=== PATIENT | male | born 1985 | race Caucasian/White ===

== ENCOUNTER 2020-11-29 17:30 | Emergency (ER) | payer SELFPAY ==
[2020-11-29 19:45] LABS: SARS-COV-2 RT PCR POSITIVE (NEGATIVE)
--- NOTE | 2020-11-29 20:17 | ER ---
Nurse's Notes [facility] Name: Augustus Zavala Age: 35 yrs Sex: Male : 1985 Arrival Date: 11/29/2020 Time: 17:38 Bed 28 Private MD: Diagnosis: Coronavirus infection, unspecified Presentation: 11/29 18:02 Chief complaint: Patient states: "I was feeling sick on Sunday, but still felt well jd3 enough to go to [employer] and do the mother's day thing, but today I feel like I have been hit by a freight train. chills, body aches, cough.". Coronavirus screen: chills, cough unrelated to allergies, fatigue, muscle pain, Client presents with at least one sign or symptom that may indicate coronavirus-19. Standard/surgical mask placed on the client. Provider contacted for isolation considerations. Ebola Screen: Patient negative for fever greater than or equal to 101.5 degrees Fahrenheit, and additional compatible Ebola Virus Disease symptoms. Initial Sepsis Screen: Does the patient meet any 2 criteria? No. Patient's initial sepsis screen is negative. Does the patient have a suspected source of infection? No. Patient's initial sepsis screen is negative. Risk Assessment: Do you want to hurt yourself or someone else? Patient reports no desire to harm self or others. Onset of symptoms was November 28, 2020. 18:02 Method Of Arrival: Ambulatory jd3 18:02 Acuity: MARLYS 3 jd3 Historical: - Allergies: 18:06 Morphine; jd3 18:06 Lortab Elixir; jd3 - Home Meds: 18:06 Glipizide Oral [Active]; Protonix Oral [Active]; jd3 - PMHx: 18:06 Diabetes - NIDDM; GERD; jd3 - PSHx: 18:06 Appendectomy; Cholecystectomy; left ear; jd3 - Immunization history:: Adult Immunizations up to date. - Social history:: Smoking status: Patient denies any tobacco usage or history of. Screenin:45 Abuse screen: Denies threats or abuse. Denies injuries from another. Nutritional zb screening: No deficits noted. Tuberculosis screening: No symptoms or risk factors identified. Fall Risk None identified. Assessment: 19:45 Reassessment: notified ECP that patient is positive for COVID. zb 20:05 Reassessment: ECP at bedside. zb 20:10 General: Appears uncomfortable, Behavior is calm, cooperative, appropriate for age, zb Reports feeling ill for 1-2 days, fatigue for 1-2 days. Pain: Complains of pain in throat, generalized body aches, and headache Pain currently is 6 out of 10 on a pain scale. Quality of pain is described as aching. Neuro: Level of Consciousness is awake, alert, obeys commands, Oriented to person, place, time, situation. Cardiovascular: Patient's skin is warm and dry. Respiratory: Airway is patent Respiratory effort is even, unlabored, Respiratory pattern is regular, Breath sounds are clear bilaterally. GI: No signs and/or symptoms were reported involving the gastrointestinal system. : No signs and/or symptoms were reported regarding the genitourinary system. EENT: Throat is clear. Derm: Skin is healthy with good turgor, Skin is dry, Skin is normal. Musculoskeletal: Circulation, motion, and sensation intact. Range of motion: intact in all extremities. 20:25 Reassessment: d/c instructions given. patient ambulatory. gait even and steady upon d/c.zb Vital Signs: 18:06 BP 144 / 83; Pulse 101; Resp 19 S; Temp 97.7(TE); Pulse Ox 99% on R/A; Weight 270.34 kg jd3 (R); Height 6 ft. 7 in. (200.66 cm) (R); Pain 5/10; 20:25 BP 152 / 107; Pulse 93; Resp 16; Pulse Ox 99% on R/A; zb 18:06 Body Mass Index 67.14 (270.34 kg, 200.66 cm) jd3 ED Course: 17:38 Patient arrived in ED. am2 18:04 Triage completed. jd3 18:07 Arm band placed on. jd3 19:01 COVID-19 : Document "Date of Symptom Onset" if Symptomatic. Sent. ca1 19:44 Jc Veronica PA is PHCP. jmm 19:44 Gadiel Live MD is Attending Physician. jmm 19:46 Patient has correct armband on for positive identification. Bed in low position. Call zb light in reach. Side rails up X 1. Notified ED physician of a critical lab result(s). Positive COVID. Door closed. Noise minimized. Warm blanket given. 19:49 Aylin Wetzel, RN is Primary Nurse. zb 20:23 No provider procedures requiring assistance completed. Patient did not have IV access zb during this emergency room visit. Administered Medications: 20:20 Drug: Decadron (dexamethasone) 10 mg Route: IM; Site: left deltoid; zb 20:20 Follow up: Response: Medication administered at discharge. zb Outcome: 20:16 Discharge ordered by MD. tellez 20:23 Discharged to home ambulatory. zb 20:23 Condition: stable 20:23 Discharge instructions given to patient, Instructed on discharge instructions, follow up and referral plans. medication usage, Demonstrated understanding of instructions, follow-up care, medications, Prescriptions given X 3. 20:28 Patient left the ED. zb Signatures: Jc Veronica PA PA jmm Moreno, Amanda am2 Kenny Cantrell RN RN jFabi Scott RN RN ca1 Aylin Wetzel RN RN zb
--- NOTE | 2020-11-29 20:17 | EDPHYS ---
Physician Documentation [facility] Name: Augustus Zavala Age: 35 yrs Sex: Male : 1985 Arrival Date: 11/29/2020 Time: 17:38 Bed 28 Private MD: ED Physician Gadiel Live HPI: 11/29 18:08 This 35 yrs old Male presents to ER via Ambulatory with complaints of Sore jmm Throat, General Weakness, Cough, chills, sweats. 18:08 The patient presents with sore throat. Onset: The symptoms/episode began/occurred jmm gradually, 1 day(s) ago. Modifying factors: The symptoms are alleviated by nothing, the symptoms are aggravated by nothing. Associated signs and symptoms: Pertinent positives: chills, cough, fever. This is a 35 year old male with a history of DM, that presents to the ED with complaints of sore throat cough, congestion. . Historical: - Allergies: 18:06 Morphine; jd3 18:06 Lortab Elixir; jd3 - Home Meds: 18:06 Glipizide Oral [Active]; Protonix Oral [Active]; jd3 - PMHx: 18:06 Diabetes - NIDDM; GERD; jd3 - PSHx: 18:06 Appendectomy; Cholecystectomy; left ear; jd3 - Immunization history:: Adult Immunizations up to date. - Social history:: Smoking status: Patient denies any tobacco usage or history of. ROS: 18:08 Constitutional: Positive for body aches, chills. jmm 18:08 Respiratory: Positive for cough. 18:08 Neuro: Positive for weakness. 18:08 All other systems are negative. Exam: 18:08 Constitutional: This is a well developed, well nourished patient who is awake, alert, jmm and in no acute distress. Head/Face: atraumatic. Eyes: EOMI, no conjunctival erythema appreciated ENT: Moist Mucus Membranes Neck: Trachea midline, Supple Chest/axilla: Normal chest wall appearance and motion. Cardiovascular: Regular rate and rhythm. No edema appreciated Respiratory: Normal respirations, no respiratory distress appreciated Abdomen/GI: Non distended, soft Back: Normal ROM Skin: General appearance color normal MS/ Extremity: Moves all extremities, no obvious deformities appreciated, no edema noted to the lower extremities Neuro: Awake and alert, normal gait Psych: Behavior is normal, Mood is normal, Patient is cooperative and pleasant Vital Signs: 18:06 BP 144 / 83; Pulse 101; Resp 19 S; Temp 97.7(TE); Pulse Ox 99% on R/A; Weight 270.34 kg jd3 (R); Height 6 ft. 7 in. (200.66 cm) (R); Pain 5/10; 20:25 BP 152 / 107; Pulse 93; Resp 16; Pulse Ox 99% on R/A; zb 18:06 Body Mass Index 67.14 (270.34 kg, 200.66 cm) jd3 MDM: 19:53 Patient medically screened. jesse 20:13 Data reviewed: vital signs, nurses notes. Counseling: I had a detailed discussion with geoff the patient and/or guardian regarding: the historical points, exam findings, and any diagnostic results supporting the discharge/admit diagnosis, lab results, the need for outpatient follow up, to return to the emergency department if symptoms worsen or persist or if there are any questions or concerns that arise at home. ED course: Patient is alert and non toxic in appearance in the ED. No resp distress. Patient is given strict return precautions. patient understood and agrees with . 11/29 18:08 Order name: COVID-19 : Document "Date of Symptom Onset" if Symptomatic. [facility] 11/29 18:08 Order name: Strep j 11/29 18:08 Order name: Group A Streptococcus Rapid Sc; Complete Time: 19:46 EDMS 11/29 19:24 Order name: Throat Culture EDNY 11/29 19:46 Order name: COVID-19/FLU A+B; Complete Time: 19:51 EDMS Administered Medications: 20:20 Drug: Decadron (dexamethasone) 10 mg Route: IM; Site: left deltoid; zb 20:20 Follow up: Response: Medication administered at discharge. zb Disposition: 11/30 06:48 Co-signature as Attending Physician, Gadiel Live MD I agree with the assessment and the [facility] plan of care. Disposition: 11/29/20 20:16 Discharged to Home. Impression: Coronavirus infection, unspecified. - Condition is Stable. - Discharge Instructions: COVID-19. - Prescriptions for ivermectin 3 mg Oral tablet - take 6 tablet by ORAL route as directed one dose now and one dose on day 3; 12 tablet. Zithromax Z- Renato 250 mg Oral Tablet - take 1 tablet by ORAL route as directed for 5 days Day 1 - take two (2) tablets one time. Day 2, 3, 4 , 5 take one (1) tablet once daily.; 6 tablet. Albuterol Sulfate 90 mcg/actuation - inhale 1-2 puff by INHALATION route every 4-6 hours; 1 Inhaler. - Medication Reconciliation Form, Thank You Letter, Antibiotic Education, Prescription Opioid Use form. - Follow up: Private Physician; When: 2 - 3 days; Reason: Recheck today's complaints, Continuance of care, Re-evaluation by your physician. - Notes: Please take: 1000 MG of NAC (N-Acetyl Cysteine) 3 times a day 2 mg of melatonin before bedtime 50 mg of Zinc daily 10,000 IU of Vitamin D daily Signatures: Dispatcher [employer] EDMS Gadiel Live MD MD cha Mickail, Joel, PA PA jmm Davies, Jonathon, RN RN Aylin Guido RN RN zb Corrections: (The following items were deleted from the chart) 11/29 18:54 18:08 CORONAVIRUS ordered. [facility] EDNY 18:54 18:09 Influenza Screen (A \\T\\ B)+BA.LAB.BRZ ordered. [facility] EDMS 20:28 20:16 11/29/2020 20:16 Discharged to Home. Impression: Coronavirus infection, zb unspecified. Condition is Stable. Forms are Medication Reconciliation Form, Thank You Letter, Antibiotic Education, Prescription Opioid Use. Follow up: Private Physician; When: 2 - 3 days; Reason: Recheck today's complaints, Continuance of care, Re-evaluation by your physician. geoff
[2020-11-29] MEDS ORDERED: dexAMETHasone 10 MG/ML VIAL ONE (20:33)
[2020-11-29 21:06] VITALS: TEMP 97.7; O2SAT 99
[2020-11-29 21:08] VITALS: BP 152/107
== END 2020-11-29 20:28 | disposition home or self-care (01) ==
LOC: ER 17:30
DX: U07.1 COVID-19 (principal); E11.9 Type 2 diabetes mellitus without complications; Z88.5 Allergy status to narcotic agent
CPT/HCPCS: 0240U; 87070; 87081; 96372; 99283; J1100

== ENCOUNTER 2021-04-13 13:11 | Emergency (ER) | payer SELFPAY ==
[2021-04-13 14:42] LABS: Absolute Lymphocytes (CBC) 3.1 K/uL (0.7-4.9); Basophils % 0.8 % (0-1.3); Hematocrit 39.7 % (39.6-49.0); Lymphocytes % 29.9 % (15.3-44.8); MPV 8.3 fL (7.6-11.3); RBC Red Blood Cell Count 4.84 M/uL (4.33-5.43)
[2021-04-13 14:55] LABS: ALT/SGPT 39 U/L (12-78); AST/SGOT 16 U/L (15-37); Albumin 3.9 g/dL (3.4-5.0); Alkaline Phosphatase 108 U/L (45-117); BUN Blood Urea Nitrogen 21 mg/dL (7-18); Bicarbonate 25 mmol/L (21-32); Bilirubin Direct 0.1 mg/dL (0-0.2); Bilirubin Total 0.5 mg/dL (0.2-1.0); Glucose Level 347 mg/dL (74-106); Lipase 170 U/L (73-393); Potassium 3.8 mmol/L (3.5-5.1); Protein, Total 7.9 g/dL (6.4-8.2); Sodium Level 135 mmol/L (136-145)
[2021-04-13] MEDS ORDERED: NA CHLORIDE 0.9% 1,000 ML ONE (16:39)
--- NOTE | 2021-04-13 17:03 | ER ---
Nurse's Notes [facility] Name: Augustus Zavala Age: 35 yrs Sex: Male : 1985 Arrival Date: 04/13/2021 Time: 13:18 Bed 12 Private MD: Diagnosis: SARS-associated coronavirus as the cause of diseases classified elsewhere Presentation: 04/13 13:29 Chief complaint: Patient states: tired, increased thurst, diarrhea since yesterday. HX; tc5 DM, covid recovered 2 months ago. Coronavirus screen: Vaccine status: Patient reports being unvaccinated. recovered 2 months ago. Ebola Screen: Patient negative for fever greater than or equal to 101.5 degrees Fahrenheit, and additional compatible Ebola Virus Disease symptoms Patient denies exposure to infectious person. Patient denies travel to an Ebola-affected area in the 21 days before illness onset. No symptoms or risks identified at this time. Onset of symptoms was April 12, 2021 at 00:00. 13:29 Method Of Arrival: Ambulatory tc5 13:29 Acuity: MARLYS 3 tc5 13:42 Initial Sepsis Screen: Does the patient meet any 2 criteria? No. Patient's initial tw2 sepsis screen is negative. Does the patient have a suspected source of infection? No. Patient's initial sepsis screen is negative. Risk Assessment: Do you want to hurt yourself or someone else? Patient reports no desire to harm self or others. Triage Assessment: 13:29 General: Appears in no apparent distress. obese, Behavior is calm, cooperative, tw2 appropriate for age. Pain: Denies pain. Historical: - Allergies: 13:40 Lortab Elixir; tw2 13:40 Morphine; tw2 - Home Meds: 13:40 glipizide 10 mg oral tab 1 tab once daily [Active]; Protonix Oral [Active]; tw2 - PMHx: 13:40 Diabetes - NIDDM; GERD; tw2 - PSHx: 13:40 Appendectomy; Cholecystectomy; cyst removed from ear drum; tw2 - Immunization history:: Client reports having NOT received the Covid vaccine. - Social history:: Smoking status: . Screenin:42 Abuse screen: Denies threats or abuse. Nutritional screening: No deficits noted. tw2 Tuberculosis screening: No symptoms or risk factors identified. Fall Risk None identified. Assessment: 13:47 Reassessment: provider at bedside at this time. tw2 Vital Signs: 13:29 BP 153 / 81; Pulse 100; Resp 18; Temp 98.1; Pulse Ox 98% ; Weight 226.8 kg; Height 6 tc5 ft. 7 in. (200.66 cm); Pain 4/10; 13:42 Weight 207.43 kg (M); tw2 15:27 BP 130 / 62; Pulse 82; Resp 16; Pulse Ox 96% ; tc5 13:42 Body Mass Index 51.52 (207.43 kg, 200.66 cm) tw2 ED Course: 13:18 Patient arrived in ED. am2 13:33 Triage completed. tc5 13:33 Bed in low position. Call light in reach. Side rails up X 1. tw2 13:35 Dominick Power PA is PHCP. jr8 13:35 Katherine Bell MD is Attending Physician. jr8 13:41 Arm band placed on. tw2 13:59 Janiya Martinez, [place] is Primary Nurse. tc5 14:36 Basic Metabolic Panel Sent. tc5 14:37 CBC with Automated Diff Sent. tc5 14:37 Hepatic Function Sent. tc5 14:37 Lipase Sent. tc5 14:37 Basic Metabolic Panel Sent. tc5 14:37 CBC with Diff Sent. tc5 14:37 Inserted saline lock: 20 gauge in left antecubital area, using aseptic technique. tc5 15:28 Awaiting: pt resting, waiting for his lab results. no needs expressed at this time. tc5 Administered Medications: 16:18 Drug: NS 0.9% 1000 ml Route: IV; Rate: 1 bolus; Site: left antecubital; tc5 Outcome: 17:03 Discharge ordered by . jr8 17:48 Patient left the ED. tc5 Signatures: Dominick Power PA PA jr8 Cheryl Moreno RN RN tw2 Madelaine Zaldivar 2 Janiya Martinez RN RN tc5 Corrections: (The following items were deleted from the chart) 15:28 15:25 BP 154 / 96; Pulse 75bpm; Resp 16bpm; Pulse Ox 100%; tc5 tc5 15:40 14:37 CORONAVIRUS+MR.LAB.BRZ drawn and sent. tc5 EDMS
--- NOTE | 2021-04-13 17:03 | EDPHYS ---
Physician Documentation [facility] Name: Augustus Zavala Age: 35 yrs Sex: Male : 1985 Arrival Date: 04/13/2021 Time: 13:18 Bed 12 Private MD: ED Physician Katherine Bell HPI: 04/13 14:07 This 35 yrs old Male presents to ER via Ambulatory with complaints of General jr8 Weakness, Headache, Diarrhea. 14:07 Onset: The symptoms/episode began/occurred acutely, yesterday. Associated signs and jr8 symptoms: Pertinent positives: headache, Nausea, fatigue. Modifying factors: The patient symptoms are alleviated by nothing, the patient symptoms are aggravated by nothing. The patient has not experienced similar symptoms in the past. The patient has not recently seen a physician. This is a 35-year-old male patient stated that for the past 2 days has had increased fatigue, headache, nausea, diarrhea. Had Covid about 2 months ago but recovered fully. Stated he has had increased thirst as well. Has been out of his meds and has not been able to check his blood sugar.. Historical: - Allergies: 13:40 Lortab Elixir; tw2 13:40 Morphine; tw2 - Home Meds: 13:40 glipizide 10 mg oral tab 1 tab once daily [Active]; Protonix Oral [Active]; tw2 - PMHx: 13:40 Diabetes - NIDDM; GERD; tw2 - PSHx: 13:40 Appendectomy; Cholecystectomy; cyst removed from ear drum; tw2 - Immunization history:: Client reports having NOT received the Covid vaccine. - Social history:: Smoking status: . ROS: 14:07 Eyes: Negative for injury, pain, redness, and discharge, ENT: Negative for injury, jr8 pain, and discharge, Neck: Negative for injury, pain, and swelling, Cardiovascular: Negative for chest pain, palpitations, and edema, Respiratory: Negative for shortness of breath, cough, wheezing, and pleuritic chest pain, Back: Negative for injury and pain, MS/Extremity: Negative for injury and deformity, Skin: Negative for injury, rash, and discoloration. 14:07 Constitutional: Positive for fatigue, malaise. 14:07 Abdomen/GI: Positive for nausea, diarrhea, Negative for abdominal pain, vomiting. 14:07 Neuro: Positive for headache. Exam: 14:07 Constitutional: This is a well developed, well nourished patient who is awake, alert, jr8 and in no acute distress. ENT: Nares patent. No nasal discharge, no septal abnormalities noted. Tympanic membranes are normal and external auditory canals are clear. Oropharynx with no redness, swelling, or masses, exudates, or evidence of obstruction, uvula midline. Mucous membranes moist. Neck: Trachea midline, no thyromegaly or masses palpated, and no cervical lymphadenopathy. Supple, full range of motion without nuchal rigidity, or vertebral point tenderness. No Meningismus. Cardiovascular: Regular rate and rhythm with a normal S1 and S2. No gallops, murmurs, or rubs. Normal PMI, no JVD. No pulse deficits. Respiratory: Lungs have equal breath sounds bilaterally, clear to auscultation and percussion. No rales, rhonchi or wheezes noted. No increased work of breathing, no retractions or nasal flaring. Abdomen/GI: Soft, non-tender, with normal bowel sounds. No distension or tympany. No guarding or rebound. No evidence of tenderness throughout. Back: No spinal tenderness. No costovertebral tenderness. Full range of motion. Skin: Warm, dry with normal turgor. Normal color with no rashes, no lesions, and no evidence of cellulitis. MS/ Extremity: Pulses equal, no cyanosis. Neurovascular intact. Full, normal range of motion. Neuro: Awake and alert, GCS 15, oriented to person, place, time, and situation. Cranial nerves II-XII grossly intact. Motor strength 5/5 in all extremities. Sensory grossly intact. Vital Signs: 13:29 BP 153 / 81; Pulse 100; Resp 18; Temp 98.1; Pulse Ox 98% ; Weight 226.8 kg; Height 6 tc5 ft. 7 in. (200.66 cm); Pain 4/10; 13:42 Weight 207.43 kg (M); tw2 15:27 BP 130 / 62; Pulse 82; Resp 16; Pulse Ox 96% ; tc5 13:42 Body Mass Index 51.52 (207.43 kg, 200.66 cm) tw2 MDM: 13:38 Patient medically screened. [facility] 17:01 Data reviewed: vital signs, nurses notes, lab test result(s), and as a result, I will jr8 discharge patient. Data interpreted: Pulse oximetry: on room air is 96 %. Interpretation: normal. Counseling: I had a detailed discussion with the patient and/or guardian regarding: the historical points, exam findings, and any diagnostic results supporting the discharge/admit diagnosis, lab results, the need for outpatient follow up, a family practitioner, to return to the emergency department if symptoms worsen or persist or if there are any questions or concerns that arise at home. ED course: Patient feeling better overall. Discussed with him that his glucose was high but that he is also Covid positive. I checked with patient to see between the last time he had Covid if he had any negative PCR's between now and then. Patient stated that since his last Covid he has had 2 - PCR's. Because of this I am suspicious that patient may have Covid based on his symptoms again and then positive PCR today. We will treat as such and have him quarantine for the next 10 days. Knows to come back if worse.. 04/13 13:53 Order name: Basic Metabolic Panel [facility] 04/13 13:53 Order name: CBC with Diff 8 04/13 13:53 Order name: Hepatic Function; Complete Time: 14:56 [facility] 04/13 13:53 Order name: Lipase; Complete Time: 14:56 8 04/13 13:53 Order name: Basic Metabolic Panel; Complete Time: 14:56 EDMS 04/13 13:53 Order name: IV Saline Lock; Complete Time: 14:37 [facility] 04/13 13:53 Order name: Labs collected and sent; Complete Time: 14:37 [facility] 04/13 13:53 Order name: CBC with Automated Diff; Complete Time: 14:56 EDMS 04/13 16:57 Order name: SARS-COV-2 RT PCR; Complete Time: 17:06 EDMS Administered Medications: 16:18 Drug: NS 0.9% 1000 ml Route: IV; Rate: 1 bolus; Site: left antecubital; tc5 Disposition Summary: 04/13/21 17:03 Discharge Ordered Location: Home jr Problem: new jr8 Symptoms: have improved jr8 Condition: Stable jr8 Diagnosis - SARS-associated coronavirus as the cause of diseases classified elsewhere jr8 Followup: jr8 - With: Private Physician - When: 1 week - Reason: Recheck today's complaints, Continuance of care, Re-evaluation by your physician Discharge Instructions: - COVID-19 jr8 - Discharge Summary Sheet tw2 Forms: - Medication Reconciliation Form jr8 - Thank You Letter jr8 - Antibiotic Education jr8 - Work release form tw2 - Prescription Opioid Use jr8 Prescriptions: - Zofran 4 mg Oral Tablet - take 1 tablet by ORAL route every 12 hours As needed; 20 tablet; Refills: 0, jr8 Product Selection Permitted Addendum: 04/16/2021 17:41 Co-signature as Attending Physician, Katherine Bell MD. m a2 Signatures: Dispatcher [employer] EDMS Dominick Power PA PA jr8 Cheryl Moreno RN RN tw2 Katherine Bell MD MD de2 Janiya Martinez RN RN tc5 Corrections: (The following items were deleted from the chart) 04/13 15:40 13:54 CORONAVIRUS+MR.LAB.BRZ ordered. [facility]WA EDMS
[2021-04-13 18:22] VITALS: TEMP 98.1
[2021-04-13 18:23] VITALS: BP 130/62; O2SAT 96
== END 2021-04-13 17:48 | disposition home or self-care (01) ==
LOC: ER 13:11
DX: U07.1 COVID-19 (principal); E11.9 Type 2 diabetes mellitus without complications; K21.9 Gastro-esophageal reflux disease without esophagitis
CPT/HCPCS: 36415; 80048; 80076; 83690; 85025; 99283; J7030; U0003

== ENCOUNTER 2022-11-24 12:49 | Emergency (ER) | payer OTHER, SELFPAY ==
--- OUTSIDE RECORDS SUMMARY | 2022-11-24 12:53 | XMS REPORT | Continuity of Care Document ---
:1985 Author Organization [facility] t Address [address] [place] [address] [place] [id number] Care Team Providers Name Role Phone PCP, PATIENT DOES NOT HAVE A Primary Care Physician UnavailBrock Head Attending Clinician BROCK RUSH Attending Clinician Unavailable Doctor Unassigned, [place] Attending Clinician Unavailable VY GONZALEZ Attending Clinician Unavailable Vy Gonzalez MD Attending Clinician Noe Zepeda Attending Clinician NOE AKBAR Attending Clinician Unavailable NOE AKBAR Admitting Clinician Unavailable Payers Payer Name Policy Type Policy Number Effective Date Expiration Date S ource Problems Condition Condition Condition Status Onset Resolution Last Treating Co mments Source Name Details Category Date Date Treatment Clinician Date No known No known Disease Unive rs active active ity of problems problems [facility] Allergies, Adverse Reactions, Alerts Allergy Allergy Status Severity Reaction(s) Onset Inactive Treating Comm ents Source Name Type Date Date Clinician Morphine Propensi Active Nausea Univer s ty to and/or 07-31 ity of adverse Vomiting 00:00: [place] reaction 00 Medical s Branch HYDROCOD DRUG Active Other-Cmnt Univ ers ONE-ACET 07-31 ity of AMINOPHE 00:00: [place] N 00 Medical Branch MORPHINE DRUG Active N/V Univers INGREDI 07-31 ity of 00:00: [place] [facility] Hydrocod Propensi Active Other - See Night U nivers one-Acet ty to comments 07-31 terrors ity o f aminophe adverse 00:00: [place] n reaction 00 Medical s Branch Social History Social Habit Start Date Stop Date Quantity Comments Source Exposure to 2021-12-24 2022-01-03 Not sure [facility] SARS-CoV-2 (event) 00:00:00 23:40:00 Medica l Branch Sex Ass[birth year] At [birth year] [facility] 00:00:00 00:00:00 Medical Branch Smoking Status Start Date Stop Date Source Unknown if ever smoked [facility] Medications Ordered Filled Start Stop Current Ordering Indication Dosage Frequency Signature Comments Components Source Medication Medication Date Date Medication? Clinician (SIG) Name Name lidocaine No 10mL 10 mL, Unive rs 2% viscous 6-15 06-15 Oral, ity of (LIDOCAINE 08:00: 06:52 ONCE, 1 Vince as VISCOUS) 2 00 :00 dose, On Medic al % solution Wed Branch 10 mL 01/04/22 at 0300, BROOK traMADoL 50 Yes [id number] 50mg Take 1 Univ ers mg tablet 6-15 tablet by ity o f 00:00: mouth [place] 00 every 6 Medical (six) Branch hours as needed for Pain (scale 7-10). Indication s: acute pain amoxicillin Yes [id number] 875mg Take 1 Univers 875 mg 6-15 tablet by ity of tablet 00:00: mouth 2 [place] 00 (two) Medical times Branch daily. ketorolac 2021- No 30mg 30 mg, Unive rs (TORADOL) 2-05 02-05 Slow IV ity of injection 04:30: 03:25 Push, [place] 30 mg 00 :00 ONCE, 1 Medical dose, On Branch 08/26/21 at 2230, Routine
faculty member approving Restricted medication : VY GONZALEZ ketorolac Yes [id number] 10mg Take 1 U nivers 10 mg 2-04 tablet by ity of tablet 00:00: mouth [place] 00 every 6 Medical (six) Branch hours as needed for Pain (scale 7-10). methocarbam Yes [id number] 750mg Take 1 Univers oL 750 mg 2-04 tablet by ity o f tablet 00:00: mouth [place] 00 every 6 Medical (six) Branch hours as needed for Pain (scale 7-10) (MUSCLE SPASM). ketorolac 0 Yes [id number] 10mg Take 1 U nivers 10 mg 2-04 tablet by ity of tablet 00:00: mouth [place] 00 every 6 Medical (six) Branch hours as needed for Pain (scale 7-10). methocarbam 0 Yes [id number] 750mg Take 1 Univers oL 750 mg 2-04 tablet by ity o f tablet 00:00: mouth [place] 00 every 6 Medical (six) Branch hours as needed for Pain (scale 7-10) (MUSCLE SPASM). ketorolac 0 Yes [id number] 10mg Take 1 U nivers 10 mg 2-04 tablet by ity of tablet 00:00: mouth [place] 00 every 6 Medical (six) Branch hours as needed for Pain (scale 7-10). methocarbam 0 Yes [id number] 750mg Take 1 Univers oL 750 mg 2-04 tablet by ity o f tablet 00:00: mouth [place] 00 every 6 Medical (six) Branch hours as needed for Pain (scale 7-10) (MUSCLE SPASM). ketorolac 2021- No 30mg 30 mg, Unive rs (TORADOL) 07-31 Slow IV ity of injection 17:30: 16:27 Push, [place] 30 mg 00 :00 ONCE, 1 Medical dose, On Branch 07/31/21 at 1130, BROOK ondansetron 2021- No 4mg 4 mg, Slow Univers (ZOFRAN 07-31 IV Push, ity of (PF)) 17:30: 16:27 ONCE, 1 [place] injection 4 00 :00 dose, On Medi jennifer mg 07/31/21 Branch at 1130, BROOK iopamidol 2021- No [id number] 120mL 120 mL, Univers (ISOVUE 07-31 Intravenou ity o f 370-500 mL) 17:15: 17:13 s, ONCE, 1 [place] injection 00 :00 dose, On Medica l 120 mL 07/31/21 Branch at 1115, Routine NaCl 0.9% 2021-0 202- No 1000mL at 999 Uni vers (NS) bolus 1-09 01-09 mL/hr, ity of infusion 17:15: 19:00 1,000 mL, Vince as 1,000 mL 00 :00 IV Medical Infusion, Branch ONCE, 1 dose, On 07/31/21 at 1115, BROOK ondansetron 2-0 Yes [id number] 4mg Take 1 U nivers (ZOFRAN) 4 1-09 tablet by ity of mg tablet 00:00: mouth [place] 00 every 8 Medical (eight) Branch hours as needed for Nausea and Vomiting (N/V). dicyclomine 2022-0 Yes [id number] 20mg Take 1 Univers 20 mg 1-09 tablet by ity of tablet 00:00: mouth 4 [place] 00 (four) Medical times Branch daily as needed for Abdominal pain. ondansetron 2022-0 Yes [id number] 4mg Take 1 U nivers (ZOFRAN) 4 1-09 tablet by ity of mg tablet 00:00: mouth [place] 00 every 8 Medical (eight) Branch hours as needed for Nausea and Vomiting (N/V). dicyclomine 2022-0 Yes [id number] 20mg Take 1 Univers 20 mg 1-09 tablet by ity of tablet 00:00: mouth 4 [place] 00 (four) Medical times Branch daily as needed for Abdominal pain. ondansetron 2-0 Yes [id number] 4mg Take 1 U nivers (ZOFRAN) 4 1-09 tablet by ity of mg tablet 00:00: mouth [place] 00 every 8 Medical (eight) Branch hours as needed for Nausea and Vomiting (N/V). dicyclomine 2022-0 Yes [id number] 20mg Take 1 Univers 20 mg 1-09 tablet by ity of tablet 00:00: mouth 4 00 (four) Medical times Branch daily as needed for Abdominal pain. ondansetron 2022-0 Yes [id number] 4mg Take 1 U nivers (ZOFRAN) 4 1-09 tablet by ity of mg tablet 00:00: mouth [place] 00 every 8 Medical (eight) Branch hours as needed for Nausea and Vomiting (N/V). dicyclomine 2022-0 Yes [id number] 20mg Take 1 Univers 20 mg 1-09 tablet by ity of tablet 00:00: mouth 4 [place] 00 (four) Medical times [place] daily as needed for Abdominal pain. glipiZIDE 2021- No [id number] 10mg Take 1 U nivers 10 mg 07-31 tablet by ity of tablet 00:00: 05:59 mouth 2 [place] 00 :00 (two) Medical times [place] daily before breakfast and dinner for 30 days. glipiZIDE 2021- No [id number] 10mg Take 1 U nivers 10 mg 07-31 tablet by ity of tablet 00:00: 05:59 mouth 2 [place] 00 :00 (two) Medical times [place] daily before breakfast and dinner for 30 days. Vital Signs Vital Name Observation Time Observation Value Comments Source Systolic blood 2022-01-04 07:12:00 158 mm[Hg] Univer sity [facility] Diastolic blood 2022-01-04 07:12:00 87 [facility]Hg[facility] 2022-01-04 07:12:00 92 /min [facility] Respiratory rate 2022-01-04 07:12:00 20 /min [facility] Oxygen saturation in 2022-01-04 07:12:00 98 /min [facility] Arterial blood by [facility] Pulse oximetry [place] Body temperature 2022-01-04 04:40:00 37.06 Anahi [facility] Body height 2022-01-04 04:40:00 200.7 cm [facility] Body weight 2022-01-04 04:40:00 208.655 kg [facility] BMI 2022-01-04 04:40:00 51.82 kg/m2 [facility] Systolic blood 2021-08-27 05:02:00 133 mm[Hg] Univer sity [facility] Diastolic blood 2021-08-27 05:02:00 66 mm[Hg] Unive rsity [facility] Heart rate 2021-08-27 05:02:00 76 /min [facility] Respiratory rate 2021-08-27 05:02:00 18 /min [facility] Oxygen saturation in 2021-08-27 05:02:00 97 /min University of Arterial blood by [facility] Pulse oximetry [place] Body temperature 2021-08-27 02:56:00 36.78 Anahi [facility] Body height 2021-08-27 02:56:00 200.7 cm [facility] Body weight 2021-08-27 02:56:00 206.387 kg [facility] BMI 2021-08-27 02:56:00 51.26 kg/m2 [facility] Body weight 2021-07-31 16:42:00 205.479 kg [facility] Systolic blood 2021-07-31 15:52:00 165 mm[Hg] Univer sity of [facility] Diastolic blood 2021-07-31 15:52:00 102 mm[facility]Hg] [facility] 2021-07-31 15:52:00 104 /min [facility] Body temperature 2021-07-31 15:52:00 37.17 Anahi [facility] Respiratory rate 2021-07-31 15:52:00 26 /min [facility] Oxygen saturation in 2021-07-31 15:52:00 99 /min [employer] of Arterial blood by [facility] Pulse oximetry [place] Procedures Procedure Date / Time Performing Clinician Source Performed CONSENT/REFUSAL FOR 2022-01-04 04:20:35 [facility] Un[facility]igned, [facility] Branch LIPASE 2021-08-27 03:21:00 Vy Gonzalez [facility] COMP. METABOLIC PANEL 2021-08-27 03:21:00 Vy Gonzalez [facility] ([id number] CBC WITH DIFF 2021-08-27 03:21:00 Vy Gonzalez [facility] URINALYSIS 2021-08-27 03:21:00 Vy Gonzalez [facility] NOTICE OF PRIVACY 2021-08-27 02:43:36 Doctor Unassigned, No Univ [facility] PRACTICES Name [facility] CONSENT/REFUSAL FOR 2021-08-27 02:40:32 Doctor Unassigned, No [facility] Name [facility] CT ABDOMEN PELVIS W 2021-07-31 17:30:50 Noe Akbar [facility] CONTRAST Medical Branch LIPASE 2021-07-31 16:23:00 Noe Akbar [facility] COMP. METABOLIC PANEL 2021-07-31 16:23:00 Noe Akbar [facility] ([id number]) [facility] CBC WITH DIFF 2021-07-31 16:23:00 Noe Akbar [facility] GLYCOSYLATED HEMOGLOBIN 2021-07-31 16:23:00 Noe Akbar [facility] (A1C) [facility] URINALYSIS 2021-07-31 16:23:00 Noe Akbar [facility] COVID-19 (ID NOW RAPID 2021-07-31 16:23:00 [facility] NOTICE OF PRIVACY 2021-07-31 15:47:33 Doctor Unassigned, No [facility] PRACTICES Name [facility] CONSENT/REFUSAL FOR 2021-07-31 15:47:19 Doctor Unassigned, [facility] Encounters Start End Encounter Admission Attending Care Care Encounter Source Date/Time Date/Time Type Type Clinicians Facility Department ID 2022-01-03 2022-01-04 Emergency Victor Manuel [facility] [id number] Univers 23:44:00 02:15:00 Brock MARIN [id number] i ty [facility] [id number] [facility] [id number] [facility] 084 Branch 2022-01-03 2022-01-04 Emergency X VICTOR MANUEL [facility] ERT [id number] Univers 23:44:00 02:15:00 BROCK soriano [facility] 2022-01-03 2022-01-03 Orders Doctor GARCIA [id number] Univers 00:00:00 00:00:00 Only Unassigned, FRANCISCO [id number] ity of [place] [facility] [id number] [facility] [id number] [address] 2021-08-26 2021-08-26 Emergency [facility] [id number] Univers 21:02:00 23:05:00 [facility] 2021-08-26 2021-08-26 [facility] [id number] Univers 21:02:00 23:05:00 Vy MARIN 350.1.13.10 ity of [facility] [id number] [facility] [id number] [address] 2021-07-31 2021-07-31 [facility] [id number] Univers 09:54:00 13:04:00 [facility]e [facility] 350.1.13.10 i ty of [facility] [id number] [facility] [id number] [address] 2021-07-31 2021-07-31 Emergency [facility] [id number] Univers 09:54:00 13:04:00 NOE [facility] Results Test Description Test Time Test Comments Results Result Comments Source Complete Metabolic Panel 2021-08-27 04:18:11 Test Item Value Reference Range Interpretation Comme nts NA (test code = 3769644655) 135 mmol/L 135-145 K (test code = 2559265180) 4.6 mmol/L 3.5-5.0 CL (test code = 2160890717) 98 mmol/L 98-108 CO2 TOTAL (test code = 4513003221) 27 mmol/L 23-31 AGAP (test code = 9903369579) 2-16 BUN (test code = 5901635162) 16 mg/dL 7-23 GLUCOSE (test code = 7818960680) 257 mg/dL 70-110 H CREATININE (test code = 0.77 mg/dL 0.60-1.25 6119240717) TOTAL BILI (test code = 0.5 mg/dL 0.1-1.5 2428076198) CALCIUM (test code = 7694095804) 9.1 mg/dL 8.6-10.6 T PROTEIN (test code = 0985041675) 7.7 g/dL 6.3-8.2 ALBUMIN (test code = 3682990456) 4.7 g/dL 3.5-5.0 ALK PHOS (test code = 3807683237) 100 U/L 34-122 ALTv (test code = 1742-6) 35 U/L 5-50 AST(SGOT) (test code = 8183623490) 26 U/L 13-40 eGFR (test code = 0268298433) mL/min/1.73m2 ELSA (test code = ELSA) Association of Glomerular Filtration Rate (GFR) and Staging of Kidney Disease* + +-------- + ------+| GFR (mL/min/1.73 m2) ?| With Kidney Damage ?| ?Without Kidney Damage+ +-- + +| ?>90 ?| ?Stage one ?| ? Normal ?+ +------- + -------+| ?60-89 ?| ?Stage two ?| ? Decreased GFR ? + +-------- + ------+| ?30-59 ?| ?Stage three ?| ? Stage three ? + +-------- + ------+| ?15-29 ?| ?Stage four ? | ? Stage four ?+ +------- + -------+| ?<15 (or dialysis) ? ?| ?Stage five ? | ? Stage five ?+ +------- + -------+ *Each stage assumes the associated GFR level has been in effect for at least three months. ?Stages 1 to 5, with or without kidney disease, indicate chronic kidney disease. Notes: Determination of stages one and two (with eGFR >59mL/min/1.73 m2) requires estimation of kidney damage for at least three months as defined by structural or functional abnormalities of the kidney, manifested by either:Pathological abnormalities or Markers of kidney damage (including abnormalities in the composition of the blood or urine or abnormalities in imaging tests). Lab Interpretation (test code = Abnormal 25125-4) [facility] [id number] 04:17:31 Test Item Value Reference Range Interpretation Comments LIPASE (test code = 6353545399) 175 U/L 0-220 Lab Interpretation (test code = Normal 61694-1) [facility] with [id number] 04:13:29 Test Item Value Reference Range Interpretation Comments WBC (test code = See_Comment [Automated 6690-2) message] The sy stem which generated this result transmitted reference range : 4.20 - 10.70 10*3/?L. The reference range was not used to interpret this result as normal/abnormal . RBC (test code = See_Comment [Automated 789-8) message] The sy stem which generated this result transmitted reference range : 4.26 - 5.52 10*6/?L. The reference range was not used to interpret this result as normal/abnormal . HGB (test code = 13.8 g/dL 12.2-16.4 718-7) HCT (test code = 41.7 % 38.4-49.3 4544-3) MCV (test code = 82.6 fL 81.7-95.6 787-2) MCH (test code = 27.3 pg 26.1-32.7 785-6) MCHC (test code = 33.1 g/dL 31.2-35.0 786-4) RDW-SD (test code = 42.5 fL 38.5-51.6 30394-5) RDW-CV (test code = 14.2 % 12.1-15.4 788-0) PLT (test code = See_Comment [Automated 777-3) message] The sy stem which generated this result transmitted reference range : 150 - 328 10*3/ ?L. The reference r philly was not used to interpret this result as normal/abnormal . MPV (test code = 10.2 fL 9.8-13.0 03689-1) NRBC/100 WBC (test See_Comment [Automat ed code = 0672842354) message] The system which generated this result transmitted reference range : 0.0 - 10.0 /100 WBCs. The refer ence range was not u sed to interpret th is result as normal/abnormal . NRBC x10^3 (test code <0.01 See_Comment [Auto mated = 2179170867) message] The s ystem which generated this result transmitted reference range : 10*3/?L. The reference range was not used to interpret this result as normal/abnormal . GRAN MAT (NEUT) % 50.6 % (test code = 770-8) IMM GRAN % (test code 0.70 % = 4300657025) LYMPH % (test code = 38.2 % 736-9) MONO % (test code = 7.3 % 5905-5) EOS % (test code = 2.8 % 713-8) BASO % (test code = 0.4 % 706-2) GRAN MAT x10^3(ANC) 4.54 10*3/uL 1.99-6.95 (test code = 5181549681) IMM GRAN x10^3 (test 0.06 10*3/uL 0.00-0.06 code = 7194094630) LYMPH x10^3 (test code 3.42 10*3/uL 1.09-3.23 H = 731-0) MONO x10^3 (test code 0.65 10*3/uL 0.36-1.02 = 742-7) EOS x10^3 (test code = 0.25 10*3/uL 0.06-0.53 711-2) BASO x10^3 (test code 0.04 10*3/uL 0.01-0.09 = 704-7) Lab Interpretation Abnormal (test code = 80292-9) [facility] (A1C)2021-07-31 18:16:08 Test Item Value Reference Range Interpretation Comments HGB A1C (test code = 10.6 % 4.0-5.7 H 4548-4) ELSA (test code = ELSA) Reference RangesNormal: <5.7%Prediabetes: 5.7 - 6.4%Diabetes: > 6.5% Lab Interpretation (test Abnormal code = 73447-7) [facility] Center[facility] METABOLIC PANEL (65880)2021-07-31 16:51:58 Test Item Value Reference Range Interpretation Comments NA (test code = 132 mmol/L 135-145 L 2177897519) K (test code = 4.0 mmol/L 3.5-5.0 4558422437) CL (test code = 97 mmol/L 98-108 L 5101331395) CO2 TOTAL (test code = 25 mmol/L 23-31 0486409642) AGAP (test code = 2-16 8301933567) BUN (test code = 10 mg/dL 7-23 0103913115) GLUCOSE (test code = 275 mg/dL 70-110 H 0363424518) CREATININE (test code = 0.63 mg/dL 0.60-1.25 4249162440) TOTAL BILI (test code = 0.8 mg/dL 0.1-1.3 2525030203) CALCIUM (test code = 8.7 mg/dL 8.6-10.6 6643808721) T PROTEIN (test code = 7.6 g/dL 6.3-8.2 0399579491) ALBUMIN (test code = 4.3 g/dL 3.5-5.0 5583312385) ALK PHOS (test code = 110 U/L 34-122 4384336313) ALTv (test code = 28 U/L 5-50 1742-6) AST(SGOT) (test code = 23 U/L 13-40 6460027555) eGFR (test code = mL/min/1.73m2 0236061871) ELSA (test code = ELSA) Association of Glomerular Filtration Rate (GFR) and Staging of Kidney Disease* + --+ --+ ------+| GFR (mL/min/1.73 m2) ?| With Kidney Damage ?| ?Without Kidney Damage+ --------+ --------+ +| ?>90 ?| ?Stage one ?| ? Normal ?+ ---+ ---+ -------+| ?60-89 ?| ?Stage two ?| ? Decreased GFR ? + --+ --+ ------+| ?30-59 ?| ?Stage three ?| ? Stage three ? + --+ --+ ------+| ?15-29 ?| ?Stage four ? | ? Stage four ?+ ---+ ---+ -------+| ?<15 (or dialysis) ? ?| ?Stage five ? | ? Stage five ?+ ---+ ---+ -------+ *Each stage assumes the associated GFR level has been in effect for at least three months. ?Stages 1 to 5, with or without kidney disease, indicate chronic kidney disease. Notes: Determination of stages one and two (with eGFR >59mL/min/1.73 m2) requires estimation of kidney damage for at least three months as defined by structural or functional abnormalities of the kidney, manifested by either:Pathological abnormalities or Markers of kidney damage (including abnormalities in the composition of the blood or urine or abnormalities in imaging tests). Lab Interpretation Abnormal (test code = 75794-9) [facility] 16:51:18 Test Item Value Reference Range Interpretation Comments LIPASE (test code = 5985884051) 68 U/L 0-220 Lab Interpretation (test code = Normal 60479-4) [facility] CenterCBC WITH [id number] 16:37:38 Test Item Value Reference Range Interpretation Comments WBC (test code = See_Comment [Automated 6690-2) message] The sy stem which generated this result transmitted reference range : 4.20 - 10.70 10*3/?L. The reference range was not used to interpret this result as normal/abnormal . RBC (test code = See_Comment [Automated 789-8) message] The sy stem which generated this result transmitted reference range : 4.26 - 5.52 10*6/?L. The reference range was not used to interpret this result as normal/abnormal . HGB (test code = 14.2 g/dL 12.2-16.4 718-7) HCT (test code = 43.3 % 38.4-49.3 4544-3) MCV (test code = 82.0 fL 81.7-95.6 787-2) MCH (test code = 26.9 pg 26.1-32.7 785-6) MCHC (test code = 32.8 g/dL 31.2-35.0 786-4) RDW-SD (test code = 42.7 fL 38.5-51.6 59281-7) RDW-CV (test code = 14.3 % 12.1-15.4 788-0) PLT (test code = See_Comment [Automated 777-3) message] The sy stem which generated this result transmitted reference range : 150 - 328 10*3/ ?L. The reference r philly was not used to interpret this result as normal/abnormal . MPV (test code = 9.8 fL 9.8-13.0 67386-0) NRBC/100 WBC (test See_Comment [Automat ed code = 2208245870) message] The system which generated this result transmitted reference range : 0.0 - 10.0 /100 WBCs. The refer ence range was not u sed to interpret th is result as normal/abnormal . NRBC x10^3 (test code <0.01 See_Comment [Auto mated = 6970452979) message] The s ystem which generated this result transmitted reference range : 10*3/?L. The reference range was not used to interpret this result as normal/abnormal . GRAN MAT (NEUT) % 77.0 % (test code = 770-8) IMM GRAN % (test code 0.70 % = 7958210208) LYMPH % (test code = 13.5 % 736-9) MONO % (test code = 8.1 % 5905-5) EOS % (test code = 0.4 % 713-8) BASO % (test code = 0.3 % 706-2) GRAN MAT x10^3(ANC) 6.88 10*3/uL 1.99-6.95 (test code = 4329743372) IMM GRAN x10^3 (test 0.06 10*3/uL 0.00-0.06 code = 9950786533) LYMPH x10^3 (test code 1.21 10*3/uL 1.09-3.23 = 731-0) MONO x10^3 (test code 0.72 10*3/uL 0.36-1.02 = 742-7) EOS x10^3 (test code = 0.04 10*3/uL 0.06-0.53 L 711-2) BASO x10^3 (test code 0.03 10*3/uL 0.01-0.09 = 704-7) Lab Interpretation Abnormal (test code = 92372-8) [facility]"
[2022-11-24] MEDS ORDERED: COLCHICINE 0.6 MG TAB ONE (13:46)
--- NOTE | 2022-11-24 13:54 | RAD REPORT ---
EXAM DESCRIPTION: US - Lower Extremity Artery [facility] - 11/24/2022 1:42 pm CLINICAL HISTORY: Pain and redness COMPARISON: None FINDINGS: The common femoral, superficial femoral and popliteal arteries demonstrate triphasic waveforms The posterior tibial and dorsalis pedis arteries demonstrate triphasic waveforms. IMPRESSION: No flow limiting arterial stenosis in the left lower extremity.
--- NOTE | 2022-11-24 14:00 | RAD REPORT ---
EXAM DESCRIPTION: US - Extremity Venous [facility] - 11/24/2022 1:41 pm CLINICAL HISTORY: Pain and redness COMPARISON: None. TECHNIQUE: Real-time sonographic evaluation of the left lower extremity deep venous system was perfo rmed. FINDINGS: Normal compressibility, flow augmentation, phasic flow and spontaneous flow is identified in the left lower extremity deep venous system. No intraluminal filling defects seen. IMPRESSION: No DVT in the left lower extremity.
--- NOTE | 2022-11-24 14:06 | ER ---
Nurse's Notes [facility] Name: Augustus Zavala Age: 37 yrs Sex: Male : 1985 Arrival Date: 11/24/2022 Time: 12:49 Bed 12 Private MD: Diagnosis: Idiopathic gout, left ankle and foot Presentation: 11/24 12:59 Chief complaint: Patient states: Left knee pain down to Left ankle x 2 days with a vg1 burning sensation. Coronavirus screen: Vaccine status: Patient reports being unvaccinated. Ebola Screen: Patient negative for fever greater than or equal to 101.5 degrees Fahrenheit, and additional compatible Ebola Virus Disease symptoms Patient denies exposure to infectious person. Patient denies travel to an Ebola-affected area in the 21 days before illness onset. Initial Sepsis Screen: Does the patient meet any 2 criteria? No. Patient's initial sepsis screen is negative. Does the patient have a suspected source of infection? No. Patient's initial sepsis screen is negative. Risk Assessment: Do you want to hurt yourself or someone else? Patient reports no desire to harm self or others. Onset of symptoms was November 22, 2022. 12:59 Method Of Arrival: Wheelchair vg1 12:59 Acuity: MARLYS 3 vg1 Triage Assessment: 12:59 General: Appears uncomfortable, Behavior is calm, cooperative. Pain: Complains of pain vg1 in medial aspect of left calf, left medial ankle and left helm Pain currently is 10 out of 10 on a pain scale. Pain began 2-3 days ago. Musculoskeletal: Circulation, motion, and sensation intact. Historical: - Allergies: 13:03 Lortab Elixir; vg1 13:03 Morphine; vg1 - Home Meds: 13:04 glipizide 10 mg Oral tab 1 tab once daily [Active]; vg1 - PMHx: 13:03 Diabetes - NIDDM; GERD; Peripheral vascular disease; vg1 - PSHx: 13:03 Appendectomy; Cholecystectomy; cyst removed from ear drum; vg1 - Immunization history:: Client reports having NOT received the Covid vaccine. - Social history:: Smoking status: Patient reports the use of cigarette tobacco products, smokes one pack cigarettes per day. Screenin:13 [facility] ED Fall Risk Assessment (Adult) History of falling in the last 3 months, kc6 including since admission No falls in past 3 months (0 pts) Confusion or Disorientation No (0 pts) Intoxicated or Sedated No (0 pts) Impaired Gait No (0 pts) Mobility Assist Device Used No (0 pt) Altered Elimination No (0 pt) Score/Fall Risk Level 0 - 2 = Low Risk Oriented to surroundings, Maintained a safe environment, Educated pt \T\ family on fall prevention, incl call for assistance when getting out of bed, Assessed \T\ reinforced patient's understanding of fall precautions, Hourly rounding (assess needs \T\ fall precautionary measures) done. Abuse screen: Denies threats or abuse. Denies injuries from another. Nutritional screening: No deficits noted. Tuberculosis screening: No symptoms or risk factors identified. Assessment: 13:50 Reassessment: Patient appears in no apparent distress at this time. No changes from vg1 previously documented assessment. Patient and/or family updated on plan of care and expected duration. Pain level reassessed. Patient is alert, oriented x 3, equal unlabored respirations, skin warm/dry/pink. 14:17 Reassessment: Patient appears in no apparent distress at this time. Patient and/or kc6 family updated on plan of care and expected duration. Pain level reassessed. Patient is alert, oriented x 3, equal unlabored respirations, skin warm/dry/pink. Vital Signs: 12:59 BP 136 / 79; Pulse 85; Resp 20; Temp 98(O); Pulse Ox 98% on R/A; Weight 199.58 kg; vg1 Height 6 ft. 7 in. ; Pain 10/10; 14:18 BP 132 / 61; Pulse 87; Resp 19 S; Pulse Ox 96% on R/A; Pain 3/10; kc6 12:59 Body Mass Index 49.57 (199.58 kg, 200.66 cm) vg1 12:59 Pain Scale: Adult vg1 14:18 Pain Scale: Adult kc6 ED Course: 12:51 Patient arrived in ED. ts1 12:54 Lottie Steven FNP-C is PHCP. snw 12:54 Pelon Pinto MD is Attending Physician. snw 12:59 Arm band placed on. vg1 13:00 Patient has correct armband on for positive identification. Bed in low position. Call kc6 light in reach. Side rails up X2. Adult w/ patient. 13:03 Triage completed. vg1 13:43 Lower Extremity Artery Uni Ltd US In Process Unspecified. EDMS 13:43 US Extremity Venous Unilateral Ltd In Process Unspecified. EDMS 14:17 No provider procedures requiring assistance completed. Patient did not have IV access kc6 during this emergency room visit. Administered Medications: 13:50 Drug: Colcrys PO 1.2 mg Route: PO; vg1 14:17 Follow up: Response: No adverse reaction; Pain is decreased; RASS: Alert and Calm (0) kc6 Medication: 14:17 VIS not applicable for this client. kc6 Outcome: 14:05 Discharge ordered by MD. manrique 14:17 Discharged to home ambulatory. kc6 14:17 Condition: improved 14:17 Discharge instructions given to patient, Instructed on discharge instructions, follow up and referral plans. medication usage, Demonstrated understanding of instructions, follow-up care, medications, Prescriptions given X 1. 14:18 Patient left the ED. kc6 Signatures: Dispatcher [employer] EDLottie Neville, PHLEBOTOMY TECH-C PHLEBOTOMY TECH-Csnw Maricarmen Palafox, RN RN vg1 Dee Clark RN RN kc6 Nicolasa Lane, PAS PAS ts1 Corrections: (The following items were deleted from the chart) 13:04 12:59 Pulse 85bpm; Resp 20bpm; Pulse Ox 98% RA; Temp 98F Oral; 199.58 kg; Height 6 ft. vg1 7 in.; BMI: 49.5; Pain 10/10, Adult; vg1 13:04 13:03 Home Meds: PAD; vg1 vg1
--- NOTE | 2022-11-24 14:06 | EDPHYS ---
Physician Documentation [facility] Name: Augustus Zavala Age: 37 yrs Sex: Male : 1985 Arrival Date: 11/24/2022 Time: 12:49 Bed 12 Private MD: ED Physician Pelon Pinto HPI: 11/24 13:15 This 37 yrs old Male presents to ER via Wheelchair with complaints of Foot Pain, Ankle snw Injury. 13:15 The patient presents with decreased range of motion, pain, that is acute. The snw complaints affect the left helm, anterior aspect of left ankle and dorsum of left foot. Context: The problem was sustained at home, resulted from an unknown cause, the patient can partially bear weight. Onset: The symptoms/episode began/occurred suddenly, 2 day(s) ago. Associated signs and symptoms: The patient has no apparent associated signs or symptoms. Severity of symptoms: At their worst the symptoms were moderate, severe. The patient has not experienced similar symptoms in the past. It is unknown whether or not the patient has recently seen a physician. Historical: - Allergies: 13:03 Lortab Elixir; vg1 13:03 Morphine; vg1 - Home Meds: 13:04 glipizide 10 mg Oral tab 1 tab once daily [Active]; vg1 - PMHx: 13:03 Diabetes - NIDDM; GERD; Peripheral vascular disease; vg1 - PSHx: 13:03 Appendectomy; Cholecystectomy; cyst removed from ear drum; vg1 - Immunization history:: Client reports having NOT received the Covid vaccine. - Social history:: Smoking status: Patient reports the use of cigarette tobacco products, smokes one pack cigarettes per day. ROS: 13:14 Constitutional: Negative for fever, chills, and weight loss, Eyes: Negative for injury, snw pain, redness, and discharge, ENT: Negative for injury, pain, and discharge, Neck: Negative for injury, pain, and swelling, Cardiovascular: Negative for chest pain, palpitations, and edema, Respiratory: Negative for shortness of breath, cough, wheezing, and pleuritic chest pain, Abdomen/GI: Negative for abdominal pain, nausea, vomiting, diarrhea, and constipation, Back: Negative for injury and pain, : Negative for injury, bleeding, discharge, and swelling, Skin: Negative for injury, rash, and discoloration, Neuro: Negative for headache, weakness, numbness, tingling, and seizure, Psych: Negative for depression, anxiety, suicide ideation, homicidal ideation, and hallucinations. 13:14 MS/extremity: Positive for decreased range of motion, pain, swelling, of the left leg and left helm and left medial ankle. Exam: 13:11 Constitutional: This is a well developed, obese patient who is awake, alert, and in no snw acute distress. Head/Face: Normocephalic, atraumatic. Eyes: Pupils equal round and reactive to light, extra-ocular motions intact. Lids and lashes normal. Conjunctiva and sclera are non-icteric and not injected. Cornea within normal limits. Periorbital areas with no swelling, redness, or edema. ENT: Nares patent. No nasal discharge, no septal abnormalities noted. Tympanic membranes are normal and external auditory canals are clear. Oropharynx with no redness, swelling, or masses, exudates, or evidence of obstruction, uvula midline. Mucous membranes moist. Neck: Trachea midline, no thyromegaly or masses palpated, and no cervical lymphadenopathy. Supple, full range of motion without nuchal rigidity, or vertebral point tenderness. No Meningismus. Chest/axilla: Normal chest wall appearance and motion. Nontender with no deformity. No lesions are appreciated. Cardiovascular: Regular rate and rhythm with a normal S1 and S2. No gallops, murmurs, or rubs. Normal PMI, no JVD. No pulse deficits. Respiratory: Lungs have equal breath sounds bilaterally, clear to auscultation and percussion. No rales, rhonchi or wheezes noted. No increased work of breathing, no retractions or nasal flaring. Abdomen/GI: Soft, non-tender, with normal bowel sounds. No distension or tympany. No guarding or rebound. No evidence of tenderness throughout. Back: No spinal tenderness. No costovertebral tenderness. Full range of motion. Neuro: Awake and alert, GCS 15, oriented to person, place, time, and situation. Cranial nerves II-XII grossly intact. Motor strength 5/5 in all extremities. Sensory grossly intact. Cerebellar exam normal. Normal gait. Psych: Awake, alert, with orientation to person, place and time. Behavior, mood, and affect are within normal limits. 13:11 Musculoskeletal/extremity: ROM: limited active range of motion due to pain, limited passive range of motion due to pain, consistent with PAD. Severe pain noted. 13:11 Skin: Appearance: normal except for affected area, lower extremities with discoloration consistent with PAD, tender to left lower leg and ankle, foot.. Vital Signs: 12:59 BP 136 / 79; Pulse 85; Resp 20; Temp 98(O); Pulse Ox 98% on R/A; Weight 199.58 kg; vg1 Height 6 ft. 7 in. ; Pain 10/10; 14:18 BP 132 / 61; Pulse 87; Resp 19 S; Pulse Ox 96% on R/A; Pain 3/10; kc6 12:59 Body Mass Index 49.57 (199.58 kg, 200.66 cm) vg1 12:59 Pain Scale: Adult vg1 14:18 Pain Scale: Adult kc6 MDM: 12:55 Patient medically screened. snw 14:07 Differential diagnosis: tendonitis, DVT, PAD, Gout. Data reviewed: vital signs, nurses snw notes. Care significantly affected by the following chronic conditions: Diabetes, PAD. Counseling: I had a detailed discussion with the patient and/or guardian regarding: the historical points, exam findings, and any diagnostic results supporting the discharge/admit diagnosis, the presence of at least one elevated blood pressure reading (>120/80) during this emergency department visit, radiology results, the need for outpatient follow up, for definitive care, to return to the emergency department if symptoms worsen or persist or if there are any questions or concerns that arise at home. Special discussion: I have referred the patient to see his PCP for further evaluation of high blood pressure. Based on the history and exam findings, there is no indication for further emergent testing or inpatient evaluation. I discussed with the patient/guardian the need to see the primary care provider for further evaluation of the symptoms. 11/24 13:03 Order name: Lower Extremity Artery Uni Ltd ; Complete Time: 14:04 snw 11/24 13:03 Order name: US Extremity Venous Unilateral Ltd; Complete Time: 14:04 snw Administered Medications: 13:50 Drug: Colcrys PO 1.2 mg Route: PO; vg1 14:17 Follow up: Response: No adverse reaction; Pain is decreased; RASS: Alert and Calm (0) kc6 Disposition Summary: 11/24/22 14:05 Discharge Ordered Location: Home snw Condition: Stable snw Diagnosis - Idiopathic gout, left ankle and foot snw Followup: snw - With: Emergency Department - When: As needed - Reason: Worsening of condition Followup: snw - With: Private Physician - When: 2 - 3 days - Reason: Recheck today's complaints, Continuance of care, Re-evaluation by your physician Discharge Instructions: - Discharge Summary Sheet snw - Gout snw - Low-Purine Eating Plan snw - Diet for Metabolic Syndrome snw Forms: - Medication Reconciliation Form snw - Thank You Letter snw - Antibiotic Education snw - Prescription Opioid Use snw Prescriptions: - Mobic 7.5 mg Oral Tablet - take 1 tablet by ORAL route 2 times per day take with food; 20 tablet; Refills: snw 0, Product Selection Permitted Signatures: Dispatcher [employer] EDLottie Neville, [employer] WEIGHT [employer]IFTER-Csnw Maricarmen Palafox RN RN vg1 Dee Clark RN kc6 Corrections: (The following items were deleted from the chart) 13:04 13:03 Home Meds: PAD; vg1 vg1
[2022-11-24 14:23] VITALS: TEMP 98
[2022-11-24 14:25] VITALS: BP 132/61; O2SAT 96
== END 2022-11-24 14:18 | disposition home or self-care (01) ==
LOC: ER 12:49
DX: M10.072 Idiopathic gout, left ankle and foot (principal); E11.9 Type 2 diabetes mellitus without complications; I73.9 Peripheral vascular disease, unspecified; F17.210 Nicotine dependence, cigarettes, uncomplicated; Z88.5 Allergy status to narcotic agent
CPT/HCPCS: 93926; 93971; 99283

== ENCOUNTER 2022-12-18 19:32 | Emergency (ER) | payer OTHER ==
--- OUTSIDE RECORDS SUMMARY | 2022-12-18 19:35 | XMS REPORT | Continuity of Care Document ---
:1985 Author Organization [facility] t Address [address] [place] [address] [place] [id number] Care Team Providers Name Role Phone PCP, PATIENT DOES NOT HAVE A Primary Care Physician UnavailBrock Head Attending Clinician BROCK RUSH Attending Clinician Unavailable Doctor Unassigned, [place] Attending Clinician Unavailable VY GONZALEZ Attending Clinician [...] rs active active ity of problems problems [facility] Allergies, Adverse Reactions, Alerts Allergy Allergy Status [...] INGREDI 07-31 ity of 00:00: [place] [address] [facility] Hydrocod Propensi Active Other - See Night U nivers one-Acet ty to comments 07-31 terrors ity o f aminophe adverse 00:00: [place] n reaction 00 Medical s Branch Social History Social Habit Start Date Stop Date Quantity Comments Source Exposure to 2021-12-24 2022-01-03 Not sure [facility] SARS-CoV-2 (event) 00:00:00 23:40:00 Medica l Branch Sex Ass[birth year] At [birth year] [facility] 00:00:00 00:00:00 Medical Branch Smoking Status Start Date Stop Date Source Unknown if ever smoked [facility] Medications Ordered Filled Start Stop [...] 7-10). Indication s: acute pain amoxicillin Yes [id number] 875mg Take 1 Univers 875 mg 6-15 tablet by ity of tablet 00:00: mouth 2 [place] 00 (two) Medical times Branch daily. ketorolac 2021- No 30mg 30 mg, Unive rs (TORADOL) 2-05 02-05 Slow IV ity of injection 04:30: 03:25 Push, [place] 30 mg 00 :00 ONCE, 1 Medical dose, On Branch 08/26/21 at 2230, Routine
membership advisor approving Restricted medication : VY GONZALEZ ketorolac Yes [id number] 10mg Take 1 U nivers 10 mg 2-04 tablet by ity of tablet 00:00: mouth [place] 00 every 6 Medical (six) Branch hours as needed for Pain (scale 7-10). methocarbam Yes [id number] 750mg Take 1 Univers oL 750 mg 2-04 tablet by ity o f tablet 00:00: mouth [place] 00 every 6 Medical (six) Branch hours as needed for Pain (scale 7-10) (MUSCLE SPASM). ketorolac 0 Yes [id number] 10mg Take 1 U nivers 10 mg 2-04 tablet by ity of tablet 00:00: mouth [place] 00 every 6 Medical (six) Branch hours as needed for Pain (scale 7-10). methocarbam 0 Yes [id number] 750mg Take 1 Univers oL 750 mg 2-04 tablet by ity o f tablet 00:00: mouth [place] 00 every 6 Medical (six) Branch hours as needed for Pain (scale 7-10) (MUSCLE SPASM). ketorolac 0 Yes [id number] 10mg Take 1 U nivers 10 mg 2-04 tablet by ity of tablet 00:00: mouth [place] 00 every 6 Medical (six) Branch hours as needed for Pain (scale 7-10). methocarbam 0 Yes [id number] 750mg Take 1 Univers oL 750 mg [...] Branch at 1130, BROOK iopamidol 2021- No [id number] 120mL 120 mL, Univers (ISOVUE 07-31 Intravenou [...] 07/31/21 at 1115, [place] ondansetron 2-0 Yes [id number] 4mg Take 1 U nivers (ZOFRAN) 4 1-09 tablet by ity of mg tablet 00:00: mouth [place] 00 every 8 Medical (eight) Branch hours as needed for Nausea and Vomiting (N/V). dicyclomine 2022-0 Yes [id number] 20mg Take 1 Univers 20 mg 1-09 tablet by ity of tablet 00:00: mouth 4 [place] 00 (four) Medical times Branch daily as needed for Abdominal pain. ondansetron 2022-0 Yes [id number] 4mg Take 1 U nivers (ZOFRAN) 4 1-09 tablet by ity of mg tablet 00:00: mouth [place] 00 every 8 Medical (eight) Branch hours as needed for Nausea and Vomiting (N/V). dicyclomine 2022-0 Yes [id number] 20mg Take 1 Univers 20 mg 1-09 tablet by ity of tablet 00:00: mouth 4 [place] 00 (four) Medical times Branch daily as needed for Abdominal pain. ondansetron 2-0 Yes [id number] 4mg Take 1 U nivers (ZOFRAN) 4 1-09 tablet by ity of mg tablet 00:00: mouth [place] 00 every 8 Medical (eight) Branch hours as needed for Nausea and Vomiting (N/V). dicyclomine 2022-0 Yes [id number] 20mg Take 1 Univers 20 mg 1-09 tablet by ity of tablet 00:00: mouth 4 00 (four) Medical times Branch daily as needed for Abdominal pain. ondansetron 2022-0 Yes [id number] 4mg Take 1 U nivers (ZOFRAN) 4 1-09 tablet by ity of mg tablet 00:00: mouth [place] 00 every 8 Medical (eight) Branch hours as needed for Nausea and Vomiting (N/V). dicyclomine 2022-0 Yes [id number] 20mg Take 1 Univers 20 mg 1-09 tablet by ity of tablet 00:00: mouth 4 [place] 00 (four) Medical times [place] daily as needed for Abdominal pain. glipiZIDE 2021- No [id number] 10mg Take 1 U nivers 10 mg 07-31 tablet by ity of tablet 00:00: 05:59 mouth 2 [place] 00 :00 (two) Medical times [place] daily before breakfast and dinner for 30 days. glipiZIDE 2021- No [id number] 10mg Take 1 U nivers 10 mg 07-31 tablet by ity of tablet 00:00: 05:59 mouth 2 [place] 00 :00 (two) Medical times [place] daily before breakfast and dinner for 30 days. Vital Signs Vital Name Observation Time Observation Value Comments Source Systolic blood 2022-01-04 07:12:00 158 mm[Hg] Univer sity [facility] Diastolic blood 2022-01-04 07:12:00 87 mm[facility]Hg] [facility] 2022-01-04 07:12:00 92 /min [facility] Respiratory rate 2022-01-04 07:12:00 20 /min [facility] Oxygen saturation in 2022-01-04 07:12:00 98 /min [facility] Arterial blood by [facility] Pulse oximetry [place] Body temperature 2022-01-04 04:40:00 37.06 Anahi [facility] Body height 2022-01-04 04:40:00 200.7 cm [facility] Body weight 2022-01-04 04:40:00 208.655 kg [facility] BMI 2022-01-04 04:40:00 51.82 kg/m2 [facility] Systolic blood 2021-08-27 05:02:00 133 mm[Hg] Univer sity [facility] Diastolic blood 2021-08-27 05:02:00 66 mm[Hg] Unive rsity [facility] Heart rate 2021-08-27 05:02:00 76 /min [facility] Respiratory rate 2021-08-27 05:02:00 18 /min [facility] Oxygen saturation in 2021-08-27 05:02:00 97 /min [facility] of Arterial blood by [facility] Pulse oximetry [place] Body temperature 2021-08-27 02:56:00 36.78 Anahi [facility] Body height 2021-08-27 02:56:00 200.7 cm [facility] Body weight 2021-08-27 02:56:00 206.387 kg [facility] BMI 2021-08-27 02:56:00 51.26 kg/m2 [facility] Body weight 2021-07-31 16:42:00 205.479 kg [facility] Systolic blood 2021-07-31 15:52:00 165 mm[Hg] Univer sity of [facility] Diastolic blood 2021-07-31 15:52:00 102 mm[Hg] [facility] Heart rate 2021-07-31 15:52:00 104 /min [facility] Body temperature 2021-07-31 15:52:00 37.17 Anahi [facility] Respiratory rate 2021-07-31 15:52:00 26 /min [facility] Oxygen saturation in 2021-07-31 15:52:00 99 /min [place] of Arterial blood by [facility] Pulse oximetry [place] Procedures Procedure Date / Time Performing Clinician Source Performed CONSENT/REFUSAL FOR 2022-01-04 04:20:35 Doctor Unassigned, No [facility] Branch LIPASE 2021-08-27 03:21:00 Vy Gonzalez [facility] COMP. METABOLIC PANEL 2021-08-27 03:21:[address] [facility] ([id number]) [facility] CBC WITH DIFF 2021-08-27 03:21:00 Vy Gonzalez [facility] URINALYSIS 2021-08-27 03:21:00 Vy Gonzalez [facility] NOTICE OF PRIVACY 2021-08-27 02:43:36 Doctor Unassigned, No Univ [facility] PRACTICES Name [facility] CONSENT/REFUSAL FOR 2021-08-27 02:40:32 Doctor Unassigned, No [facility] Name [facility] CT ABDOMEN PELVIS W 2021-07-31 17:30:50 Noe Akbar [facility] CONTRAST Medical Branch LIPASE 2021-07-31 16:23:00 Noe Akbar [facility] COMP. METABOLIC PANEL 2021-07-31 16:23:[address] [facility] ([id number]) [facility] CBC WITH DIFF 2021-07-31 16:23:00 Noe Akbar [facility] GLYCOSYLATED HEMOGLOBIN 2021-07-31 16:23:00 Noe Akbar [facility] (A1C) [facility] URINALYSIS 2021-07-31 16:23:00 Noe Akbar [facility] COVID-19 (ID NOW RAPID 2021-07-31 16:23:00 [facility] NOTICE OF PRIVACY 2021-07-31 15:47:33 Doctor Unassigned, No [facility] PRACTICES Name [facility] CONSENT/REFUSAL FOR 2021-07-31 15:47:19 Doctor Unassigned, No [facility] Encounters Start End Encounter Admission Attending Care Care Encounter Source Date/Time Date/Time Type Type Clinicians Facility Department ID 2022-01-03 2022-01-04 Emergency Victor Manuel [facility] [id number] Univers 23:44:00 02:15:00 Brock MARIN [id number] i ty [facility] [id number] [facility] [id number] [facility] 084 Branch 2022-01-03 2022-01-04 Emergency X VICTOR MANUEL [facility] ERT [id number] Univers 23:44:00 02:15:00 BROCK soriano [facility] 2022-01-03 2022-01-03 Orders Doctor GARCIA [id number] Univers 00:00:00 00:00:00 Only Unassigned, FRANCISCO [id number] ity of [place] [facility] [id number] [facility] [id number] [address] 2021-08-26 2021-08-26 Emergency [facility] [id number] Univers 21:02:00 23:05:00 [facility] 2021-08-26 2021-08-26 [facility] [id number] Univers 21:02:00 23:05:00 Vy MARIN [id number] [facility] [id number] [facility] [id number] [address] 2021-07-31 2021-07-31 [facility] [id number] Univers 09:54:00 13:04:00 [facility] [id number] i ty [facility] [id number] [facility] [id number] [address] 2021-07-31 2021-07-31 Emergency [facility] [id number] Univers 09:54:00 13:04:00 NOE [facility] Results Test Description Test Time Test Comments Results Result Comments Source Complete Metabolic Panel 2021-08-27 04:18:11 Test Item Value Reference Range Interpretation Comme nts NA (test code = 3951479200) 135 mmol/L 135-145 K (test code = 8900121274) 4.6 mmol/L 3.5-5.0 CL (test code = 0119771747) 98 mmol/L 98-108 CO2 TOTAL (test code = 6044663931) 27 mmol/L 23-31 AGAP (test code = 0128025953) 2-16 BUN (test code = 0672104632) 16 mg/dL 7-23 GLUCOSE (test code = 1861014938) 257 mg/dL 70-110 H CREATININE (test code = 0.77 mg/dL 0.60-1.25 0239059024) TOTAL BILI (test code = 0.5 mg/dL 0.1-1.2 2687158526) CALCIUM (test code = 3001314215) 9.1 mg/dL 8.6-10.6 T PROTEIN (test code = 0940973612) 7.7 g/dL 6.3-8.2 ALBUMIN (test code = 9398413142) 4.7 g/dL 3.5-5.0 ALK PHOS (test code = 5415654600) 100 U/L 34-122 ALTv (test code = 1742-6) 35 U/L 5-50 AST(SGOT) (test code = 8013747069) 26 U/L 13-40 eGFR (test code = 9676538853) mL/min/1.73m2 ELSA (test code = ELSA) Association [...] tests). Lab Interpretation (test code = Abnormal 98869-5) [facility] [id number] 04:17:31 Test Item Value Reference Range Interpretation Comments LIPASE (test code = 1537042782) 175 U/L 0-220 Lab Interpretation (test code = Normal 63985-0) [facility] with [id number] 04:13:29 Test Item Value Reference Range Interpretation [...] RDW-SD (test code = 42.5 fL 38.5-51.6 91226-4) RDW-CV (test code = 14.2 % 12.1-15.4 788-0) PLT (test code = See_Comment [Automated 777-3) message] The sy stem which generated this result transmitted reference range : 150 - 328 10*3/ ?L. The reference r philly was not used to interpret this result as normal/abnormal . MPV (test code = 10.2 fL 9.8-13.0 59745-9) NRBC/100 WBC (test See_Comment [Automat ed code = 6882828564) message] The system which generated this result transmitted reference range : 0.0 - 10.0 /100 WBCs. The refer ence range was not u sed to interpret th is result as normal/abnormal . NRBC x10^3 (test code <0.01 See_Comment [Auto mated = 4519262455) message] The s ystem which generated this result transmitted reference range : 10*3/?L. The reference range was not used to interpret this result as normal/abnormal . GRAN MAT (NEUT) % 50.6 % (test code = 770-8) IMM GRAN % (test code 0.70 % = 7922174227) LYMPH % (test code = 38.2 % 736-9) MONO % (test code = 7.3 % 5905-5) EOS % (test code = 2.8 % 713-8) BASO % (test code = 0.4 % 706-2) GRAN MAT x10^3(ANC) 4.54 10*3/uL 1.99-6.95 (test code = 1668940561) IMM GRAN x10^3 (test 0.06 10*3/uL 0.00-0.06 code = 7190440410) LYMPH x10^3 (test code 3.42 10*3/uL 1.09-3.23 H = 731-0) MONO x10^3 (test code 0.65 10*3/uL 0.36-1.02 = 742-7) EOS x10^3 (test code = 0.25 10*3/uL 0.06-0.53 711-2) BASO x10^3 (test code 0.04 10*3/uL 0.01-0.09 = 704-7) Lab Interpretation Abnormal (test code = 86982-9) [facility] (A1C)2021-07-31 18:16:08 Test Item Value Reference Range Interpretation Comments HGB A1C (test code = 10.6 % 4.0-5.7 H 4548-4) ELSA (test code = ELSA) Reference RangesNormal: <5.7%Prediabetes: 5.7 - 6.4%Diabetes: > 6.5% Lab Interpretation (test Abnormal code = 29534-2) [facility] ([id number])2021-07-31 16:51:58 Test Item Value Reference Range Interpretation Comments NA (test code = 132 mmol/L 135-145 L 0580555111) K (test code = 4.0 mmol/L 3.5-5.0 5827751510) CL (test code = 97 mmol/L 98-108 L 3748250704) CO2 TOTAL (test code = 25 mmol/L 23-31 6169766125) AGAP (test code = 2-16 4571029869) BUN (test code = 10 mg/dL 7-23 2062888897) GLUCOSE (test code = 275 mg/dL 70-110 H 4789157813) CREATININE (test code = 0.63 mg/dL 0.60-1.25 6191567550) TOTAL BILI (test code = 0.8 mg/dL 0.1-1.8 1323641179) CALCIUM (test code = 8.7 mg/dL 8.6-10.6 1766814939) T PROTEIN (test code = 7.6 g/dL 6.3-8.2 7859605096) ALBUMIN (test code = 4.3 g/dL 3.5-5.0 0970342035) ALK PHOS (test code = 110 U/L 34-122 6026230487) ALTv (test code = 28 U/L 5-50 1742-6) AST(SGOT) (test code = 23 U/L 13-40 7015874352) eGFR (test code = mL/min/1.73m2 9181997583) ELSA (test code = ELSA) Association of [...] tests). Lab Interpretation Abnormal (test code = 99250-7) [facility] 16:51:18 Test Item Value Reference Range Interpretation Comments LIPASE (test code = 9724554550) 68 U/L 0-220 Lab Interpretation (test code = Normal 37766-8) [facility] [id number] 16:37:38 Test Item Value Reference Range Interpretation [...] RDW-SD (test code = 42.7 fL 38.5-51.6 54679-9) RDW-CV (test code = 14.3 % 12.1-15.4 788-0) PLT (test code = See_Comment [Automated 777-3) message] The sy stem which generated this result transmitted reference range : 150 - 328 10*3/ ?L. The reference r philly was not used to interpret this result as normal/abnormal . MPV (test code = 9.8 fL 9.8-13.0 61643-4) NRBC/100 WBC (test See_Comment [Automat ed code = 8346104904) message] The system which generated this result transmitted reference range : 0.0 - 10.0 /100 WBCs. The refer ence range was not u sed to interpret th is result as normal/abnormal . NRBC x10^3 (test code <0.01 See_Comment [Auto mated = 3763459406) message] The s ystem which generated this result transmitted reference range : 10*3/?L. The reference range was not used to interpret this result as normal/abnormal . GRAN MAT (NEUT) % 77.0 % (test code = 770-8) IMM GRAN % (test code 0.70 % = 2532536745) LYMPH % (test code = 13.5 % 736-9) MONO % (test code = 8.1 % 5905-5) EOS % (test code = 0.4 % 713-8) BASO % (test code = 0.3 % 706-2) GRAN MAT x10^3(ANC) 6.88 10*3/uL 1.99-6.95 (test code = 0740625266) IMM GRAN x10^3 (test 0.06 10*3/uL 0.00-0.06 code = 3551458778) LYMPH x10^3 (test code 1.21 10*3/uL 1.09-3.23 = 731-0) MONO x10^3 (test code 0.72 10*3/uL 0.36-1.02 = 742-7) EOS x10^3 (test code = 0.04 10*3/uL 0.06-0.53 L 711-2) BASO x10^3 (test code 0.03 10*3/uL 0.01-0.09 = 704-7) Lab Interpretation Abnormal (test code = 24187-6) [facility]"
[2022-12-18 20:54] LABS: Potassium 3.6 mEq/L (3.5-5.1)
[2022-12-18 20:58] LABS: Absolute Lymphocytes (CBC) 3.3 K/uL (0.7-4.9); Hematocrit 40.4 % (39.6-49.0); Lymphocytes % 35.7 % (15.3-44.8); MCV 81.9 fL (80-100); MPV 8.1 fL (7.6-11.3); RBC Red Blood Cell Count 4.93 M/uL (4.33-5.43)
--- NOTE | 2022-12-18 21:00 | RAD REPORT ---
EXAM DESCRIPTION: RAD - Tib Fib Right - 12/18/2022 8:41 pm CLINICAL HISTORY: PAIN COMPARISON: No comparisons FINDINGS/IMPRESSION: No acute fracture. No malalignment. No significant focal degenerative changes.
[2022-12-18] MEDS ORDERED: CLINDAMYCIN 900MG/D5W 900 MG/50 ML IVPB IV ONE (21:21)
[2022-12-18] MEDS ORDERED: FENTANYL CITR 100 MCG/2 ML ONE (21:22)
--- NOTE | 2022-12-18 21:50 | EDPHYS ---
Physician Documentation [facility] Name: Augustus Zavala Age: 37 yrs Sex: Male : 1985 Arrival Date: 12/18/2022 Time: 19:32 Bed 8 Private MD: ED Physician Pelon Pinto HPI: 12/18 20:15 This 37 yrs old Male presents to ER via EMS with complaints of Pain to Right Lower Leg. cp 20:15 The patient presents with an injury, pain, that is acute, swelling, tenderness. The cp complaints affect the right helm. 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 Patient reports increasing pain, swelling and redness to right lower leg over past 3 days. Associated signs and symptoms: Pertinent positives: swelling, warmth, Pertinent negatives calf tenderness, fever, numbness. Treatment prior to arrival includes: no previous treatment. Historical: - Allergies: 19:37 Lortab Elixir; ph 19:37 Morphine; ph - Home Meds: 19:37 glipizide 10 mg Oral tab 1 tab once daily [Active]; ph - PMHx: 19:37 Diabetes - NIDDM; GERD; peripheral vascular disease; ph - PSHx: 19:37 Appendectomy; cyst removed from ear drum; Cholecystectomy; Tonsillectomy; ph - Immunization history:: Client reports having NOT received the Covid vaccine. - Social history:: Smoking status: Patient reports the use of cigarette tobacco products, smokes one pack cigarettes per day. ROS: 20:20 Constitutional: Negative for body aches, chills, fever, poor PO intake. cp 20:20 Neck: Negative for pain with movement, pain at rest, stiffness. cp 20:20 Cardiovascular: Negative for chest pain, palpitations. 20:20 Respiratory: Negative for cough, shortness of breath, wheezing. 20:20 Abdomen/GI: Negative for abdominal pain, nausea, vomiting, and diarrhea. 20:20 Back: Negative for pain at rest, pain with movement. 20:20 Skin: Positive for superficial wound anterior right lower leg. 20:20 Neuro: Negative for altered mental status, dizziness, headache, numbness, weakness. 20:20 All other systems are negative. Exam: 20:25 Constitutional: The patient appears in no acute distress, alert, awake, non-toxic, well cp developed, well nourished, obese. 20:25 Head/Face: Normocephalic, atraumatic. cp 20:25 Eyes: Periorbital structures: appear normal, Conjunctiva: normal, no exudate, no injection, Sclera: no appreciated abnormality, Lids and lashes: appear normal, bilaterally. 20:25 ENT: External ear(s): are unremarkable, Nose: is normal, Mouth: Lips: moist, Oral mucosa: pink and intact, moist, Posterior pharynx: is normal, airway is patent, no erythema, no exudate. 20:25 Chest/axilla: Inspection: normal. 20:25 Cardiovascular: Rate: normal. 20:25 Respiratory: the patient does not display signs of respiratory distress, Respirations: normal, no use of accessory muscles, no retractions, labored breathing, is not present, Breath sounds: are clear throughout, no decreased breath sounds, no stridor, no wheezing. 20:25 Abdomen/GI: Exam negative for discomfort, distension, guarding, Inspection: obese 20:25 Back: pain, is absent, ROM is normal. 20:25 Musculoskeletal/extremity: Extremities: grossly normal except: noted in the right helm: superficial wound with surrounding erythema and swelling, marked tenderness to palpation, no drainage expressed. Vital Signs: 19:34 BP 144 / 78; Pulse 89; Resp 18; Temp 98.6(O); Pulse Ox 96% on R/A; Weight 200.49 kg ph (R); Height 6 ft. 7 in. (R); Pain 3/10; 20:42 BP 168 / 55; Pulse 83; Resp 17; Pulse Ox 96% on R/A; ph 22:10 BP 112 / 68; Pulse 77; Resp 17; Pulse Ox 98% on R/A; ph 19:34 Body Mass Index 49.79 (200.49 kg, 200.66 cm) ph 19:34 Pain Scale: Adult ph MDM: 19:40 Patient medically screened. bs3 20:45 Differential diagnosis: cellulitis, abscess, DVT. cp 21:50 Data reviewed: vital signs, nurses notes, lab test result(s), radiologic studies, plain cp films. 21:50 Consideration of Admission/Observation Escalation of care including cp admission/observation considered. I considered the following discharge prescriptions or medication management in the emergency department Medications were administered in the Emergency Department. See MAR. Counseling: I had a detailed discussion with the patient and/or guardian regarding: the historical points, exam findings, and any diagnostic results supporting the discharge/admit diagnosis, lab results, radiology results, the need for outpatient follow up, a family practitioner, to return to the emergency department if symptoms worsen or persist or if there are any questions or concerns that arise at home. Response to treatment: the patient's symptoms have mildly improved after treatment, and as a result, I will discharge patient. 12/18 20:11 Order name: CBC with Diff; Complete Time: 21:02 cp 12/18 21:02 Interpretation: Normal except: HGB 13.3. cp 12/18 20:11 Order name: Protime (+inr); Complete Time: 21:02 cp 12/18 20:11 Order name: BMP; Complete Time: 21:02 cp 12/18 21:02 Interpretation: Normal except: NA 133; GLUC 295. cp 12/18 20:38 Order name: Glucose, Ancillary Testing; Complete Time: 21:02 EDMS 12/18 20:11 Order name: XRAY Tib Fib RIGHT; Complete Time: 21:02 cp 12/18 20:11 Order name: Accucheck; Complete Time: 20:27 cp 12/18 20:11 Order name: IV Saline Lock - Large Bore; Complete Time: 20:27 cp 12/18 20:11 Order name: Labs collected and sent; Complete Time: 20:27 cp 12/18 20:11 Order name: O2 Per Protocol; Complete Time: 20:13 cp 12/18 20:11 Order name: O2 Sat Monitoring; Complete Time: 20:13 cp 12/18 20:11 Order name: Vital Signs; Complete Time: 20:13 cp Administered Medications: 20:28 Not Given (Patient Refused): morphine IVP or IV 4 mg IVP once over 4 mins ph 21:08 Drug: fentaNYL (PF) IVP 25 mcg Route: IVP; Site: right antecubital; ph 22:09 Follow up: Response: No adverse reaction ph 21:26 Drug: Clindamycin IVPB 900 mg Route: IVPB; Infused Over: 30 mins; Site: right ph antecubital; 22:09 Follow up: Response: No adverse reaction; IV Status: Completed infusion; IV Intake: 50mlph 22:09 Not Given (Physician Discretion): fentaNYL (PF) IVP 25 mcg IVP once ph Disposition Summary: 12/18/22 21:50 Discharge Ordered Location: Home cp Problem: new cp Symptoms: have improved cp Condition: Stable cp Diagnosis - Cellulitis of right lower limb cp Followup: cp - With: Private Physician - When: 2 - 3 days - Reason: Recheck today's complaints Discharge Instructions: - Discharge Summary Sheet cp - Cellulitis, Adult cp Forms: - Medication Reconciliation Form cp - Thank You Letter cp - Antibiotic Education cp - Prescription Opioid Use cp Prescriptions: - Clindamycin HCl 300 mg Oral Capsule - take 1 capsule by ORAL route every 6 hours for 10 days; 40 capsule; Refills: 0, cp Product Selection Permitted - Diclofenac Sodium 75 mg Oral Tablet Sustained Release - take 1 tablet by ORAL route 2 times per day; 30 tablet; Refills: 0, Product cp Selection Permitted Signatures: Dispatcher [employer] Isabel Ro RN RN ph Gadiel Arroyo PA PA cp Pelon Pnito MD MD bs3 Corrections: (The following items were deleted from the chart) 12/19 21:46 21:43 This 37 yrs old Male presents to ER via EMS with complaints of Pain to Right cp Lower Leg. cp
--- NOTE | 2022-12-18 21:50 | ER ---
Nurse's Notes [facility] Name: Augustus Zavala Age: 37 yrs Sex: Male : 1985 Arrival Date: 12/18/2022 Time: 19:32 Bed 8 Private MD: Diagnosis: Cellulitis of right lower limb Presentation: 12/18 19:34 Chief complaint: EMS states: Toned out for wound to right helm, pt states he was moving ph when his helm got nicked 1 week ago, states for past 3 days site has been red, swollen and oozing, c/o pain /10. Coronavirus screen: Vaccine status: Patient reports being unvaccinated. At this time, the client does not indicate any symptoms associated with coronavirus-19. Ebola Screen: No symptoms or risks identified at this time. Initial Sepsis Screen: Does the patient meet any 2 criteria? No. Patient's initial sepsis screen is negative. Does the patient have a suspected source of infection? Yes: Skin breakdown/wound. Risk Assessment: Do you want to hurt yourself or someone else? Patient reports no desire to harm self or others. Onset of symptoms was December 15, 2022. Care prior to arrival: None. 19:34 Method Of Arrival: EMS: [facility] ph 19:34 Acuity: MARLYS 3 ph Triage Assessment: 19:37 General: Appears uncomfortable, Behavior is calm, cooperative. Pain: Complains of pain ph in right helm Pain does not radiate. Pain currently is 3 out of 10 on a pain scale. at worst was 10 out of 10 on a pain scale. Quality of pain is described as throbbing, stinging, Pain began 2-3 days ago. Is continuous, Aggravated by Touching. Derm: Wound noted right helm Wound is States got cut by a dough sheeter 1 week ago, states site started swelling and turning red 3 days ago, site noted to be red, hot, and swollen. Musculoskeletal: Circulation, motion, and sensation intact. Historical: - Allergies: 19:37 Lortab Elixir; ph 19:37 Morphine; ph - Home Meds: 19:37 glipizide 10 mg Oral tab 1 tab once daily [Active]; ph - PMHx: 19:37 Diabetes - NIDDM; GERD; peripheral vascular disease; ph - PSHx: 19:37 Appendectomy; cyst removed from ear drum; Cholecystectomy; Tonsillectomy; ph - Immunization history:: Client reports having NOT received the Covid vaccine. - Social history:: Smoking status: Patient reports the use of cigarette tobacco products, smokes one pack cigarettes per day. Screenin:41 [facility] ED Fall Risk Assessment (Adult) History of falling in the last 3 months, ph including since admission No falls in past 3 months (0 pts) Confusion or Disorientation No (0 pts) Intoxicated or Sedated No (0 pts) Impaired Gait No (0 pts) Mobility Assist Device Used No (0 pt) Altered Elimination No (0 pt) Score/Fall Risk Level 0 - 2 = Low Risk Oriented to surroundings, Maintained a safe environment, Educated pt \T\ family on fall prevention, incl call for assistance when getting out of bed. Abuse screen: Denies threats or abuse. Denies injuries from another. Nutritional screening: No deficits noted. Tuberculosis screening: No symptoms or risk factors identified. Assessment: 19:37 General: See triage assessment. ph 20:42 Reassessment: No changes from previously documented assessment. Patient and/or family ph updated on plan of care and expected duration. Pain level reassessed. Patient is alert, oriented x 3, equal unlabored respirations, skin warm/dry/pink. Vital Signs: 19:34 BP 144 / 78; Pulse 89; Resp 18; Temp 98.6(O); Pulse Ox 96% on R/A; Weight 200.49 kg ph (R); Height 6 ft. 7 in. (R); Pain 3/10; 20:42 BP 168 / 55; Pulse 83; Resp 17; Pulse Ox 96% on R/A; ph 22:10 BP 112 / 68; Pulse 77; Resp 17; Pulse Ox 98% on R/A; ph 19:34 Body Mass Index 49.79 (200.49 kg, 200.66 cm) ph 19:34 Pain Scale: Adult ph ED Course: 19:34 Patient arrived in ED. rv1 19:37 Triage completed. ph 19:37 Arm band placed on Patient placed in an exam room, on a stretcher, on pulse oximetry. ph 19:41 Patient has correct armband on for positive identification. Bed in low position. Call ph light in reach. Side rails up X 1. 19:42 Gadiel Arroyo PA is PHCP. cp 19:42 Pelon Pinto MD is Attending Physician. cp 20:27 Initial lab(s) drawn, by me, sent to lab. Inserted saline lock: 20 gauge in right ph antecubital area, using aseptic technique. Blood collected. 20:43 XRAY Tib Fib RIGHT In Process Unspecified. EDMS 22:10 No provider procedures requiring assistance completed. IV discontinued, intact, ph bleeding controlled, No redness/swelling at site. Pressure dressing applied. Administered Medications: 20:28 Not Given (Patient Refused): morphine IVP or IV 4 mg IVP once over 4 mins ph 21:08 Drug: fentaNYL (PF) IVP 25 mcg Route: IVP; Site: right antecubital; ph 22:09 Follow up: Response: No adverse reaction ph 21:26 Drug: Clindamycin IVPB 900 mg Route: IVPB; Infused Over: 30 mins; Site: right ph antecubital; 22:09 Follow up: Response: No adverse reaction; IV Status: Completed infusion; IV Intake: 50mlph 22:09 Not Given (Physician Discretion): fentaNYL (PF) IVP 25 mcg IVP once ph Medication: 22:10 VIS not applicable for this client. ph Intake: 22:09 IV: 50ml; Total: 50ml. ph Outcome: 21:50 Discharge ordered by . cp 22:10 Discharged to home ambulatory, with family. ph 22:10 Condition: stable 22:10 Discharge instructions given to patient, Instructed on discharge instructions, follow up and referral plans. medication usage, Demonstrated understanding of instructions, follow-up care, medications, Prescriptions given X 2. 22:12 Patient left the ED. ph Signatures: Dispatcher [employer] EDCO Isabel Ann RN RN ph Gadiel Arroyo PA PA cp Villegas, Rebecca rv1
== END 2022-12-18 22:12 | disposition home or self-care (01) ==
LOC: ER 19:32
DX: L03.115 Cellulitis of right lower limb (principal); E11.9 Type 2 diabetes mellitus without complications; F17.210 Nicotine dependence, cigarettes, uncomplicated; Z88.5 Allergy status to narcotic agent; Z88.8 Allergy status to other drugs, medicaments and biological substances
CPT/HCPCS: 96365; 85025; 80048; 36415; 85610; 82947; 73590; 96375; 99284; J3010